=== PATIENT | female | born 2000 | race Caucasian/White ===

== ENCOUNTER 2024-01-04 10:39 | Emergency (ER) | payer BC ==
[~2024-01-04] VITALS: Ht 152.4 cm; Wt 88.8 kg
[2024-01-04] MEDS ORDERED: ISOVUE-370 76% 100ML VIAL As Ordered ONE (12:00)
[2024-01-04] MEDS: KETOROLAC 30 MG/ML 1ML VIAL IV ONE (12:02)
[2024-01-04 12:25] LABS: HEMATOCRIT 37.7 % (36.0-47.0); HEMOGLOBIN 12.8 g/dl (12.0-15.5); MEAN CORPUSCULAR HEMOGLOBIN 30.8 pg (27.0-33.0); MEAN CORPUSCULAR VOLUME 90.8 fl (80.0-96.0); PLATELET COUNT, AUTOMATED 232 10^3/uL (150-450); RED BLOOD COUNT 4.15 10^6/uL (4.00-5.40); WHITE BLOOD COUNT 8.9 10^3/uL (4.0-10.0)
[2024-01-04 12:38] LABS: ERYTHROCYTE SEDIMENTATION RATE 37 mm/hr (0-20)
[2024-01-04] MEDS: CLINDAMYCIN 150MG CAPSULE PO ONE (12:58)
[2024-01-04 13:15] LABS: ATYPICAL LYMPH 25 % (0-5); LYMPHOCYTES 36 % (16-44); METAMYELOCYTES 2 % (0-0); MONOCYTES 6 % (0-5); NEUTROPHILS 24 % (28-66)
[2024-01-04 13:16] LABS: PLATELET ESTIMATE NORMAL (NORMAL)
[2024-01-04 13:18] LABS: MONO REFLEX EBV COMP NEGATIVE (NEGATIVE)
[2024-01-04] MEDS: ONDANSETRON 4MG 2ML VIAL IV ONE (13:31)
[2024-01-04] MEDS: MORPHINE 4 MG/ML 1ML VIAL IV ONE (13:38)
[2024-01-04] MEDS ORDERED: CLEO300C2 PO (14:36)
[2024-01-04 14:49] VITALS: BP 105/59; TEMP 98; O2SAT 95
[2024-01-05 15:09] LABS: EBV AB TO NUCLEAR ANTIGENOLD <18.0 U/mL (0.0-17.9); EBV VIRAL CAPSID AG IgGOLD 37.9 U/mL (0.0-17.9); EBV VIRAL CAPSID AG IgMOLD >160.0 U/mL (0.0-35.9)
== END 2024-01-04 14:50 | disposition home or self-care (01) ==
LOC: M ED 10:39
DX: J03.90 Acute tonsillitis, unspecified (principal); R59.9 Enlarged lymph nodes, unspecified; R01.1 Cardiac murmur, unspecified; F17.200 Nicotine dependence, unspecified, uncomplicated; Z88.0 Allergy status to penicillin; Z88.1 Allergy status to other antibiotic agents
CPT/HCPCS: 70487; 80047; 84702; 85025; 85652; 86140; 86308; 86664; 86665; 87880; 96374; 96375; 99284; J1885; J2405; Q9967

== ENCOUNTER → 2024-09-18 | Outpatient (REF) | payer BC, MEDICAID ==
[~2024-09-18] MED LIST: CLEO300C2 PO
[2024-09-18 18:09] LABS: BASO # 0.1 10^3/uL (0.0-0.2); BASO % 0.5 % (0.0-1.0); EOS # 0.4 10^3/uL (0.0-0.5); EOS % 3.5 % (0.0-3.0); HEMOGLOBIN 13.5 g/dl (12.0-15.5); LYMPH # 2.5 10^3/uL (1.5-5.0); LYMPH % 20.8 % (24.0-44.0); MEAN CORPUSCULAR HEMOGLOBIN 30.2 pg (27.0-33.0); MEAN CORPUSCULAR HGB CONC 32.9 g/dl (32.0-36.5); MEAN CORPUSCULAR VOLUME 91.7 fl (80.0-96.0); MONO # 1.1 10^3/uL (0.0-0.8); MONO % 8.9 % (2.0-8.0); NEUTROPHILS # 7.8 10^3/uL (1.5-8.5); PLATELET COUNT, AUTOMATED 485 10^3/uL (150-450); RED BLOOD COUNT 4.47 10^6/uL (4.00-5.40); WHITE BLOOD COUNT 11.9 10^3/uL (4.0-10.0)
[2024-09-18 18:11] LABS: APPEARANCE, URINE HAZY (CLEAR); BACTERIA, URINE AUTO NEGATIVE (NEGATIVE); BILIRUBIN, URINE AUTO 1+ (NEGATIVE); BLOOD, URINE BLOOD NEGATIVE (NEGATIVE); COLOR, URINE AMBER (YELLOW); GLUCOSE, URINE (UA) AUTO NEGATIVE (NEGATIVE); KETONE, URINE AUTO NEGATIVE (NEGATIVE); LEUKOCYTE ESTERASE, URINE AUTO NEGATIVE (NEGATIVE); MUCUS, URINE SMALL (NEGATIVE); NITRITE, URINE AUTO NEGATIVE (NEGATIVE); PROTEIN, URINE AUTO 1+ mg/dL (NEGATIVE); RBC, URINE AUTO 0 /HPF (0-3); SPECIFIC GRAVITY URINE AUTO 1.027 (1.002-1.035); SQUAMOUS EPITHELIAL CELL UR AU 1 /HPF (0-6); WBC, URINE AUTO 0 /HPF (0-3)
[2024-09-18 18:25] LABS: ERYTHROCYTE SEDIMENTATION RATE 35 mm/hr (0-20)
[2024-09-18 18:43] LABS: C REACTIVE PROTEIN QUANTITATIV 1.08 MG/DL (<1.0)
[2024-09-18 18:44] LABS: CPK CREATINE PHOSPHOKINASE 105 U/L (34-145); TOTAL PROTEIN,RANDOM URINE 19.1 MG/DL (0.0-14.0)
[2024-09-18 18:47] LABS: ALBUMIN 3.8 G/DL (3.2-5.2); ALKALINE PHOSPHATASE 78 U/L (35-104); ALT/SGPT 23 U/L (7.0-40); AST/SGOT 20 U/L (<34); BILIRUBIN,DIRECT 0.2 MG/DL (<0.4); BILIRUBIN,TOTAL 0.7 MG/DL (0.3-1.2); BLOOD UREA NITROGEN 10 MG/DL (9-23); CARBON DIOXIDE LEVEL 29 MMOL/L (20-31); CHLORIDE LEVEL 108 MMOL/L (98-107); GLOMERULAR FILTRATION RATE > 60.0 (>60); GLUCOSE, FASTING 73 MG/DL (60-100); POTASSIUM SERUM 4.8 MMOL/L (3.5-5.1); SODIUM LEVEL 142 MMOL/L (136-145); TOTAL PROTEIN 7.3 G/DL (5.7-8.2)
[2024-09-18 18:49] LABS: COMPLEMENT C3 155.4 MG/DL (82.0-160.0); IMMUNOGLOBULIN A 228.4 MG/DL (40-350); IMMUNOGLOBULIN G 1086 MG/DL (650-1600); IMMUNOGLOBULIN M 72.9 MG/DL (50-300); VITAMIN B12 LEVEL 264 PG/ML (211-911)
[2024-09-18 18:56] LABS: CREATININE,RANDOM URINE 264.9 MG/DL
== END ==
LOC: M SFHCRHEU 15:57
PROVIDERS: ATTEND Internal Medicine
DX: B99.9 Unspecified infectious disease (principal); M25.40 Effusion, unspecified joint; M79.18 Myalgia, other site

== ENCOUNTER → 2024-10-09 | Outpatient (CLI) | payer BC | LOC: M RAD 08:56 | PROVIDERS: ATTEND Internal Medicine | DX: M25.40 Effusion, unspecified joint (principal); M54.9 Dorsalgia, unspecified ==

== ENCOUNTER 2025-03-16 13:11 | Emergency (ER) | payer BC, OTHER ==
[~2025-03-16] VITALS: Ht 157.5 cm; Wt 93.8 kg
[2025-03-16] MEDS ORDERED: KETOROLAC 60 MG/2 ML VIAL IM ONE (13:20)
[2025-03-16 13:21] VITALS: BP 147/67; TEMP 98.4; O2SAT 100
[2025-03-16] MEDS: PERCOCET 5MG/325MG TAB PO ONE (13:51)
[2025-03-16] MEDS: ACETAMINOPHEN 325 MG TAB PO ONE (13:52)
== END 2025-03-16 18:04 | disposition home or self-care (01) ==
LOC: M ED 13:11
DX: S20.223A Contusion of bilateral back wall of thorax, initial encounter (principal); S70.12XA Contusion of left thigh, initial encounter; W10.8XXA Fall (on) (from) other stairs and steps, initial encounter; F90.9 Attention-deficit hyperactivity disorder, unspecified type; F17.200 Nicotine dependence, unspecified, uncomplicated; Y92.009 Unspecified place in unspecified non-institutional (private) residence as the place of occurrence of the external cause; Y93.89 Activity, other specified; Y99.9 Unspecified external cause status; Z88.0 Allergy status to penicillin; Z88.1 Allergy status to other antibiotic agents; Z79.2 Long term (current) use of antibiotics